=== PATIENT | male | born 1955 | race Caucasian/White ===

== ENCOUNTER 2018-05-20 13:32 | Emergency (ER) | payer OTHER ==
[2018-05-20 13:58] VITALS: TEMP 98.8
[2018-05-20 14:18] VITALS: RESP 20
--- NOTE | 2018-05-20 14:36 | ED ---
General Adult HPI - General Chief complaint: Allergic Reaction Stated complaint: allergic reaction Time Seen by Provider: 05/20/18 14:01 Source: patient, RN notes reviewed Mode of arrival: ambulatory Limitations: no limitations - History of Present Illness Initial comments: Patient 62-year-old male presents emergency room today with a chief complaint of foreign body sensation to the throat 2 days. Patient does admit that symptoms started after he was eating some aches 2 days ago. Patient states that he feels that he is having a difficult time swallowing. States he is able to keep down liquids but having a hard time with solids. Patient does not that his voice is changed over the last 2 days. Patient does admit that he was bitten by he believes a spider 3 days ago. He states he noticed a bite to his abdomen also want to eat lower leg. He states that this area seemed to be doing well he is unsure if it's related. Did try Benadryl yesterday with no relief the symptoms. Patient denies any recent fever, chills, shortness of breath, chest pain, back pain, abdominal pain, nausea or vomiting, numbness or tingling, - Related Data Allergies Allergy/AdvReac Type Severity Reaction Status Date / Time No Known Allergies Allergy Verified 05/20/18 13:58 Review of Systems ROS Statement: Those systems with pertinent positive or pertinent negative responses have been documented in the HPI. ROS Other: All systems not noted in ROS Statement are negative. Past Medical History Past Medical History: No Reported History History of Any Multi-Drug Resistant Organisms: None Reported Past Surgical History: Hernia Repair Additional Past Surgical History / Comment(s): rotator cuff repair, left bicep repair, right hip Past Psychological History: No Psychological Hx Reported Smoking Status: Light tobacco smoker Past Alcohol Use History: None Reported Past Drug Use History: None Reported General Exam - General Exam Comments Initial Comments: General: The patient is awake and alert, in no distress, and does not appear acutely ill. Eye: Extra-ocular movements are intact. No nystagmus. There is normal conjunctiva bilaterally. No signs of icterus. Ears, nose, mouth and throat: There are moist mucous membranes and no oral lesions. Uvula midline. Patient swallows without difficulty. Neck: The neck is supple, there is no tenderness or JVD. Cardiovascular: There is a regular rate and rhythm. No murmur, rub or gallop is appreciated. Respiratory: Lungs are clear to auscultation, respirations are non-labored, breath sounds are equal. No wheezes, stridor, rales, or rhonchi. Musculoskeletal: Normal ROM, no tenderness. Sensation intact. Neurological: A&O x 3. CN II-XII intact, There are no obvious motor or sensory deficits. Coordination appears grossly intact. Speech is normal. Skin: Skin is warm and dry and no rashes or lesions are noted. Psychiatric: Cooperative, appropriate mood & affect, normal judgment. Limitations: no limitations Course Vital Signs 05/20/18 05/20/18 05/20/18 13:54 14:17 16:34 Temperature 98.8 F Pulse Rate 120 H 120 H 104 H Respiratory 18 20 20 Rate Blood Pressure 125/84 138/84 145/94 O2 Sat by Pulse 98 96 Oximetry EKG Findings - EKG Comments: EKG Findings:: EKG performed at 1521: Shows sinus tachycardia 111 beats per minute. GA interval 168. QRS 86. QT/QTC 336/456. No acute ST changes. Medical Decision Making - Medical Decision Making Patient reexamined here in the emergency room show no signs of distress. Patient's labs been reviewed does show blood glucose mildly elevated. His x- rays and CT are negative for any acute abnormality to account for patient's symptoms. Patient tolerating by mouth liquids here in emergency room. Patient will be discharged home advised follow-up with GI on the next 2 days. Advised return if symptoms increase or worsen. - Lab Data Result diagrams: 05/20/18 15:21 05/20/18 15:21 Lab Results 05/20/18 05/20/18 Range/Units 15:21 15:21 WBC 7.2 (3.8-10.6) k/uL RBC 4.86 (4.30-5.90) m/uL Hgb 14.8 (13.0-17.5) gm/dL Hct 43.2 (39.0-53.0) % MCV 88.9 (80.0-100.0) fL MCH 30.4 (25.0-35.0) pg MCHC 34.2 (31.0-37.0) g/dL RDW 12.8 (11.5-15.5) % Plt Count 215 (150-450) k/uL Neutrophils % 58 % Lymphocytes % 30 % Monocytes % 7 % Eosinophils % 2 % Basophils % 1 % Neutrophils # 4.2 (1.3-7.7) k/uL Lymphocytes # 2.2 (1.0-4.8) k/uL Monocytes # 0.5 (0-1.0) k/uL Eosinophils # 0.1 (0-0.7) k/uL Basophils # 0.0 (0-0.2) k/uL Sodium 137 (137-145) mmol/L Potassium 4.1 (3.5-5.1) mmol/L Chloride 104 (98-107) mmol/L Carbon Dioxide 23 (22-30) mmol/L Anion Gap 10 mmol/L BUN 16 (9-20) mg/dL Creatinine 0.69 (0.66-1.25) mg/dL Est GFR (CKD-EPI)AfAm >90 (>60 ml/min/1.73 sqM) Est GFR (CKD-EPI)NonAf >90 (>60 ml/min/1.73 sqM) Glucose 266 H (74-99) mg/dL Calcium 10.1 (8.4-10.2) mg/dL Total Bilirubin 0.7 (0.2-1.3) mg/dL AST 43 (17-59) U/L ALT 66 (21-72) U/L Alkaline Phosphatase 56 (38-126) U/L Total Protein 7.2 (6.3-8.2) g/dL Albumin 4.2 (3.5-5.0) g/dL Disposition Clinical Impression: Difficulty in swallowing, Elevated random blood glucose level Disposition: HOME SELF-CARE Condition: Good Instructions: Dysphagia (ED) Additional Instructions: Please use medication as discussed. Please follow-up with GI in the next 2 days. Please return to emergency room if the symptoms increase or worsen or for any other concerns. Is patient prescribed a controlled substance at d/c from ED?: No Referrals: Minal Colón MD [Primary Care Provider] - 1-2 days Karma Andrade MD [STAFF PHYSICIAN] - 1-2 days Time of Disposition: 16:51
--- NOTE | 2018-05-20 14:36 | XR ---
EXAMINATION TYPE: XR chest 2V DATE OF EXAM: 05/20/2018 COMPARISON: NONE HISTORY: Shortness of breath TECHNIQUE: Frontal and lateral views of the chest are obtained. FINDINGS: Scattered senescent parenchymal changes noted. Hyperinflation compatible with COPD. No evidence for infiltrate. No evidence for atelectasis. Heart size is stable. Mediastinal structures are stable and grossly unremarkable. No evidence for hilar prominence. Degenerative changes dorsal spine. IMPRESSION: 1. No evidence for acute pulmonary disease.
--- NOTE | 2018-05-20 14:39 | XR ---
EXAMINATION TYPE: XR soft tissue neck DATE OF EXAM: 05/20/2018 COMPARISON: NONE HISTORY: Pain TECHNIQUE: 2 views of the soft tissues of the neck are submitted. FINDINGS: The airway is patent. Normal appearing epiglottis. Retropharyngeal soft tissues are withi n normal limits. Moderate degenerative change with disc space narrowing and spondylosis cervical spi ne. No evidence for radiopaque foreign body. IMPRESSION: Negative study
[2018-05-20] MEDS ORDERED: SODIUM CHLORIDE 0.9% 1,000 ML IV STA (15:05)
[2018-05-20 15:47] LABS: Basophils % (A) 1 %; Eosinophils # (A) 0.1 k/uL (0-0.7); Eosinophils % (A) 2 %; HCT 43.2 % (39.0-53.0); HGB 14.8 gm/dL (13.0-17.5); Lymphocytes # (A) 2.2 k/uL (1.0-4.8); Lymphocytes % (A) 30 %; MCH 30.4 pg (25.0-35.0); MCHC 34.2 g/dL (31.0-37.0); MCV 88.9 fL (80.0-100.0); Mean Platelet Volume 6.8; Monocytes # (A) 0.5 k/uL (0-1.0); Monocytes % (A) 7 %; Neutrophils # (A) 4.2 k/uL (1.3-7.7); Neutrophils % (A) 58 %; Platelet Count 215 k/uL (150-450); RBC 4.86 m/uL (4.30-5.90); RDW 12.8 % (11.5-15.5); WBC 7.2 k/uL (3.8-10.6)
[2018-05-20 15:50] LABS: ALT 66 U/L (21-72); AST 43 U/L (17-59); Albumin 4.2 g/dL (3.5-5.0); Alkaline Phosphatase 56 U/L (38-126); Anion Gap 10 mmol/L; Blood Urea Nitrogen 16 mg/dL (9-20); Calcium 10.1 mg/dL (8.4-10.2); Carbon Dioxide 23 mmol/L (22-30); Chloride 104 mmol/L (98-107); Glucose 266 mg/dL (74-99); Potassium 4.1 mmol/L (3.5-5.1); Sodium 137 mmol/L (137-145); Total Bilirubin 0.7 mg/dL (0.2-1.3); Total Protein 7.2 g/dL (6.3-8.2)
--- NOTE | 2018-05-20 16:22 | CT ---
EXAMINATION TYPE: CT neck chest w con DATE OF EXAM: 05/20/2018 COMPARISON: Chest x-ray of soft tissue neck x-ray earlier today HISTORY: pain not further specified. CT DLP: 1266 mGycm. Automated Exposure Control for Dose Reduction was Utilized. TECHNIQUE: CT scan of the neck and thorax are performed following with IV Contrast, patient injected with 100 mL of Isovue 300. FINDINGS: NECK: Airway: No gross abnormality seen. Parotid/submandibular glands: No gross abnormality seen. Carotid/Vascular Structures: No significant focal plaque at carotid bulb level is present bilaterally . Osseous Structures: Spine is straightened on sagittal images. There is mild to moderate multilevel di sc space narrowing most prominent C5-C6 level. Mild multilevel anterior spurring is seen. There are m ultilevel uncovertebral facet degenerative changes seen bilaterally. Other: Prominent but subcentimeter lymph nodes are seen throughout the neck bilaterally. No suspiciou s greater than 1 cm neck adenopathy is seen. THORAX: LUNGS: The lungs are grossly clear, there is no concerning parenchymal mass or nodule identified. T here is no pleural effusion or pneumothorax seen. The tracheobronchial tree is patent. MEDIASTINUM: There are no greater than 1 cm hilar or mediastinal lymph nodes. Scattered subcentimeter lymph nodes are present. No cardiomegaly or pericardial effusion is seen. Coronary artery calcific ation is present which is noted marker for coronary artery disease. OTHER: Visualized liver is hypodense consistent with fatty infiltration. There is nonspecific 1.9 cm hyperdense lesion posterior right hepatic dome axial image 49. Follow-up nonemergent liver protocol c ontrast-enhanced MRI is advised to further evaluate and characterize. There is moderate to severe mul tilevel anterior and lateral spurring in the thoracic spine. Small amount of bilateral gynecomastia l eft greater than right is noted. IMPRESSION: No acute findings evident.
[2018-05-20 16:35] VITALS: BP 145/94; PULSE 104
== END 2018-05-20 16:55 | disposition home or self-care (01) ==
LOC: EC 13:32
DX: R13.10 Dysphagia, unspecified (principal); R73.9 Hyperglycemia, unspecified; T63.301A Toxic effect of unspecified spider venom, accidental (unintentional), initial encounter; R09.89 Other specified symptoms and signs involving the circulatory and respiratory systems; F17.200 Nicotine dependence, unspecified, uncomplicated
CPT/HCPCS: 36415; 93005; 80053; 85025; 70360; 71046; 70491; 71260; 99284; 96360; Q9967

== ENCOUNTER → 2019-04-19 | Outpatient (CLI) | payer OTHER ==
[2019-04-19 10:52] LABS: African American GFR (CKD) >90 (>60 ml/min/1.73 sqM); Blood Urea Nitrogen 22 mg/dL (9-20); Non-African American GFR(CKD) >90 (>60 ml/min/1.73 sqM)
--- NOTE | 2019-04-19 12:03 | CT ---
EXAMINATION TYPE: CT abdomen w con DATE OF EXAM: 04/19/2019 COMPARISON: None HISTORY: Right sided pain CT DLP: 2137.5 mGycm CONTRAST: CT scan of the abdomen is performed with Oral Contrast and with IV Contrast, patient injected with 1 00 mL of Isovue 300. FINDINGS: LUNG BASES-: No visible nodule. No infiltrate. LIVER/GB: No calcified gallstones. Ill-defined hypoattenuating lesion near the dome of the liver po sterior segment right hepatic lobe measures 1.7 cm. The lesion is poorly visualized on delayed images and may reflect hemangioma. Consider ultrasound correlation. Additional hyperdense bilobed lesion po sterior segment right hepatic lobe image 24 which completely fills in on the delayed images and is fe lt to reflect hemangioma. Biliary tree is of normal caliber. PANCREAS: No inflammation. No distinct mass. SPLEEN: No splenic enlargement. No lesion seen. ADRENALS: No nodule. Adrenal glandular thickening noted left greater than right may reflect hyperpla adarsh. KIDNEYS/BLADDER: No hydronephrosis. No nephrolithiasis. No distinct renal mass. Urinary bladder g rossly unremarkable. BOWEL: Nonvisualization of the pelvic loops. Normal bowel caliber. No inflammation. Sigmoid divertic ulosis without diverticulitis. LYMPH NODES: No greater than 1cm abdominal or pelvic lymph nodes are appreciated. AORTA: No significant abnormality. OSSEOUS STRUCTURES: Severe degenerative change lumbar spine with vacuum disc noted. OTHER: No significant additional abnormality is seen. IMPRESSION: 1. Ill-defined hypoattenuating lesion near the dome of the liver posterior segment right hepatic lobe measures 1.7 cm. The lesion is poorly visualized on delayed images and may reflect hemangioma. Consi wen ultrasound correlation. 2. Probable additional bilobed hemangioma. 3. Hyperplasia of the adrenal glands.
== END | disposition home or self-care (01) ==
LOC: RADCTMAIN 09:32
PROVIDERS: ATTEND Family Medicine
DX: K76.9 Liver disease, unspecified (principal); E27.8 Other specified disorders of adrenal gland
CPT/HCPCS: 82565; 84520; 74160; 36415; Q9967

== ENCOUNTER → 2019-05-17 | Outpatient (CLI) | payer OTHER ==
--- NOTE | 2019-05-17 11:49 | US ---
EXAMINATION TYPE: US abdomen complete DATE OF EXAM: 05/17/2019 COMPARISON: CT April 19, 2019 CLINICAL HISTORY: K76.9 Liver lesions. Liver lesion seen on recent CT EXAM MEASUREMENTS: Liver Length: 18.9 cm Gallbladder Wall: 0.3 cm CBD: 0.4 cm Spleen: 11.5 cm Right Kidney: 11.9 x 5.4 x 5.4 cm Left Kidney: 13.0 x 5.6 x 7.0 cm Difficult and limited study due to patient body habitus Pancreas: visualized portions wnl, limited by overlying midline bowel gas Liver: enlarged, heterogeneous with 1.7 x 1.7 x 1.2cm hypoechoic area right lobe and 1.5 x 1.2 x 1.2 cm hypoechoic area adjacent to gallbladder Gallbladder: wnl Evidence for sonographic Russell's sign: no CBD: visualized portions wnl, limited by overlying bowel gas Spleen: wnl Right Kidney: lobulated contour Left Kidney: lobulated contour Upper IVC: wnl Abd Aorta: ectatic proximal portion measuring 2.8cm in AP, mid and distal portion obscured by overly ing midline bowel gas The visualized liver is heterogeneously hyperechoic. Evaluation for focal masses suboptimal due to th e heterogeneity. No intrahepatic ductal dilatation is seen. There is irregular 1.7 cm hypoechoic lesi on posterior right hepatic lobe near superior aspect right kidney corresponds to hyperdense focus on CT. The intrahepatic portion of the IVC and visualized proximal abdominal aorta are within normal marquez its. There is no evidence of cholelithiasis. Common bile duct is unremarkable. The visualized port ions of the pancreas are homogenous. The spleen is unremarkable. Kidneys are symmetric and free of hydronephrosis. No renal lesions are seen. IMPRESSION: Diffuse fatty infiltration of liver redemonstrated which makes evaluation suboptimal. Cor responding to hyperdense lesion on CT there is more isodense on delayed phase images is hypoechoic le jj making hemangioma less likely. There may be secondary to additional hyperdense lesion posterior right hepatic dome near 1 cm in size coronal image 79. Further investigation with multiphasic liver p rotocol contrast enhanced MRI is advised to better evaluate both levels.
== END | disposition home or self-care (01) ==
LOC: RADUSMAIN 08:38
PROVIDERS: ATTEND Family Medicine
DX: K76.9 Liver disease, unspecified (principal); K76.0 Fatty (change of) liver, not elsewhere classified
CPT/HCPCS: 76700

== ENCOUNTER → 2019-05-29 | Outpatient (CLI) | payer OTHER | END | disposition home or self-care (01) | LOC: RADMRIMAIN 21:46 | PROVIDERS: ATTEND Family Medicine | DX: Z53.9 Procedure and treatment not carried out, unspecified reason (principal) ==

== ENCOUNTER → 2021-01-28 | Outpatient (CLI) | payer OTHER | END | disposition home or self-care (01) | LOC: CPPFTMAIN 13:30 | PROVIDERS: ATTEND Family Medicine | DX: R06.02 Shortness of breath (principal); F17.200 Nicotine dependence, unspecified, uncomplicated | CPT/HCPCS: 94060; 94726; 94729 ==

== ENCOUNTER → 2021-07-14 | Outpatient (CLI) | payer OTHER ==
[2021-07-14 18:52] LABS: African American GFR (CKD) >90 (>60 ml/min/1.73 sqM); Blood Urea Nitrogen 22 mg/dL (9-20); Non-African American GFR(CKD) >90 (>60 ml/min/1.73 sqM)
--- NOTE | 2021-07-14 20:01 | CT ---
EXAMINATION TYPE: CT abdomen pelvis w con DATE OF EXAM: 07/14/2021 COMPARISON: 04/19/2019 HISTORY: abd pain CT DLP: 3604.9 mGycm Automated exposure control for dose reduction was used. CONTRAST: CT scan of the abdomen pelvis is performed with IV Contrast, patient injected with 100 mL of Isovue 3 00. FINDINGS- LUNG BASES- No significant abnormality is appreciated. LIVER/GB-liver is low in attenuation. Measures 27 cm correlate for hepatomegaly and hepatic steatosis . Previously noted hepatic dome lesion not seen with certainty on today's exam. Subcentimeter nodular enhancement involving the posterior segment of the right lobe of the liver is reduced in size from p rior exam may represent an area of fatty sparing or possibly a tiny flash hemangioma smaller in size relative to the previous exam.. PANCREAS- No gross abnormality is seen. SPLEEN- No gross abnormality is seen. ADRENALS-8mm nodule at the left adrenal gland nonspecific but stable from prior exam most likely in t he basis of an incidental adrenal adenoma.. KIDNEYS/BLADDER- no hydronephrosis nephrolithiasis or renal mass. BOWEL-bowel gas pattern nonspecific with no obstruction. Changes of sigmoid diverticulosis.. Normal appendix. LYMPH NODES- No greater than 1cm abdominal or pelvic lymph nodes areappreciated. OSSEOUS STRUCTURES-multilevel hypertrophic and degenerative disc disease.. OTHER- atherosclerotic change of aorta. No evidence of aneurysm. Ectasia of the common iliac arterie s. IMPRESSION- 1. Diverticulosis with no CT evidence of diverticulitis. 2. Hepatomegaly correlate for hepatocellular disease or hepatic steatosis. Previous hepatic dome lesi on not seen on today's exam. Hyperdense lesion noted on the prior exam appears smaller in size may re present an area of focal fatty sparing or tiny flash hemangioma. 3. Stable subcentimeter left adrenal nodule likely related to incidental adenoma.
== END | disposition home or self-care (01) ==
LOC: RADCTMAIN 17:26
PROVIDERS: ATTEND Family Medicine
DX: R16.0 Hepatomegaly, not elsewhere classified (principal); K57.30 Diverticulosis of large intestine without perforation or abscess without bleeding; E27.8 Other specified disorders of adrenal gland
CPT/HCPCS: 82565; 84520; 74177; 36415; Q9967

== ENCOUNTER → 2023-02-16 | Outpatient (CLI) | payer OTHER ==
[2023-02-17 12:25] LABS: ALT 66 U/L (10-49); AST 31 U/L (14-35); Albumin 4.7 d/dL (3.8-4.9); Albumin/Globulin Ratio 2.04 Ratio (1.60-3.17); Alkaline Phosphatase 42 U/L (41-126); BUN/Creat Ratio 22.75 Ratio (12.00-20.00); Blood Urea Nitrogen 18.2 mg/dL (9.0-27.0); Calcium 10.2 mg/dL (8.7-10.3); Carbon Dioxide 23.5 mmol/L (21.6-31.8); Chloride 102 mmol/L (96-109); Chol/HDL Ratio 5.12 Ratio; Globulin 2.3 d/dL (1.6-3.3); Glucose 137 mg/dL (70-110); LDL Cholesterol,Calculated 135.4 mg/dL (0.0-131.0); Potassium 4.6 mmol/L (3.5-5.5); Sodium 141 mmol/L (135-145); Total Bilirubin 0.4 mg/dL (0.3-1.2)
== END | disposition home or self-care (01) ==
LOC: LABWHC1 12:34
PROVIDERS: ATTEND Internal Medicine Interventional Cardiology
DX: E78.2 Mixed hyperlipidemia (principal)
CPT/HCPCS: 36415; 80053; 80061

== ENCOUNTER 2023-03-23 07:08 | Day surgery (SDC) | payer MEDICARE, OTHER ==
[2023-03-19 10:01] VITALS: BMI 44.6
[~2023-03-23 07:08] MED LIST: ALPRAZolam 0.25 MG TAB PO PRN; ALPRAZolam 0.5 MG TAB PO PRN; ASPIRIN 325 MG TAB PO STA; ATORVASTATIN 80 MG TAB PO STA; HEPARIN SODIUM,PORCINE 10,000 UNIT in SODIUM CHLORIDE 0.9% 1,000 ML IRRIGATION PRN; HEPARIN SODIUM,PORCINE 2,500 UNIT in SODIUM CHLORIDE 0.9% 250 ML IRRIGATION PRN; NITROGLYCERIN SL TABS 0.4 MG TAB SUBLINGUAL PRN; SODIUM CHLORIDE 0.9% 1,000 ML in EMPTY BAG 1 BAG IV SCH
[2023-03-23] MEDS ORDERED: SODIUM CHLORIDE 0.9% 1,000 ML IV ONE (07:27)
[2023-03-23 07:43] LABS: Glucose,Whole Blood 134 mg/dL (70-110)
[2023-03-23 07:46] VITALS: RESP 16; TEMP 98.7
[2023-03-23 07:58] LABS: Basophils % (A) 1 %; Eosinophils # (A) 0.1 k/uL (0-0.7); Eosinophils % (A) 2 %; HCT 43.1 % (39.0-53.0); HGB 15.4 gm/dL (13.0-17.5); Lymphocytes # (A) 1.8 k/uL (1.0-4.8); Lymphocytes % (A) 25 %; MCH 31.9 pg (25.0-35.0); MCHC 35.7 g/dL (31.0-37.0); MCV 89.6 fL (80.0-100.0); Mean Platelet Volume 7.6; Monocytes # (A) 0.5 k/uL (0-1.0); Monocytes % (A) 8 %; Neutrophils # (A) 4.5 k/uL (1.3-7.7); Neutrophils % (A) 62 %; Platelet Count 213 k/uL (150-450); RBC 4.81 m/uL (4.30-5.90); RDW 13.4 % (11.5-15.5); WBC 7.2 k/uL (3.8-10.6)
[2023-03-23 08:05] LABS: African American GFR (CKD) >90 (>60 ml/min/1.73 sqM); Anion Gap 11 mmol/L; Blood Urea Nitrogen 17 mg/dL (9-20); Calcium 9.9 mg/dL (8.4-10.2); Carbon Dioxide 26 mmol/L (22-30); Chloride 104 mmol/L (98-107); Glucose 137 mg/dL (74-99); Non-African American GFR(CKD) >90 (>60 ml/min/1.73 sqM); Potassium 4.6 mmol/L (3.5-5.1); Sodium 141 mmol/L (137-145)
[2023-03-23] MEDS ORDERED: VERAPAMIL 2.5 MG/ML 2 ML AMP ONE (09:10)
[2023-03-23] MEDS ORDERED: fentaNYL (PF) 50 MCG/ML 2 ML AMP ONE (09:17)
[2023-03-23] MEDS ORDERED: HEPARIN SODIUM 1,000 UN/ML (10ML VL) ONE (09:17)
[2023-03-23] MEDS ORDERED: fentaNYL (PF) 50 MCG/ML 2 ML AMP IVP ONE (09:37)
[2023-03-23] MEDS ORDERED: LIDOCAINE 1% INJ 10MG/ML (5 ML VIAL-PF) SQ ONE (09:38)
[2023-03-23] MEDS ORDERED: VERAPAMIL SYRINGE (5 MG/10 ML) INTRAARTER ONE (09:40)
[2023-03-23] MEDS ORDERED: HEPARIN SODIUM 1,000 UN/ML (10ML VL) IV ONE (09:44)
[2023-03-23] MEDS ORDERED: IOPAMIDOL-370 100ML BTL INJ ONE (09:47)
[2023-03-23] MEDS ORDERED: RX INFO: IV CONTRAST WAS GIVEN 1 EACH MISC MISCELLANE PRN (10:01)
--- NOTE | 2023-03-23 10:06 | P.CARDCATH ---
Date of Procedure: 03/23/23 Description of Procedure: Cardiac Catheterization: The patient is a 67-year-old male with a history of hypertension, hyperlipidemia and diabetes mellitus who has been complaining of chest discomfort, had an abnormal MPI. Recommendations were made regarding cardiac catheterization, the risks and the complications were discussed with the patient who is in full understanding and agreement. 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 Using Xylocaine Anesthesia and Seldinger technique, a 6-Afghan sheath was introduced in the right radial artery . Subsequently, selective coronary angiography was performed using a 5-Afghan 3.5 bend Robbin catheter. Multiple views of the coronary artery including hemiaxial views were obtained. The right Robbin catheter was used to cross the aortic valve and LVEDP was calculated. Following that, catheter and sheath were removed. Hemostasis was obtained with deployment of TR band . There was no immediate complication. Patient was returned to room in stable condition. Of note, the patient received a total of 5000 units of intravenous heparin as well as intra-arterial verapamil. Findings: Left main: This is a large-size vessel, bifurcating into LAD and left circumflex, left main has no high-grade stenosis LAD: This is a large-size vessel, reaching to the apex, giving rise to a large diagonal branch, the LAD has no obstructive disease. Left circumflex: This is a large nondominant vessel, giving rise to a large obtuse marginal branch it has no evidence of obstructive disease RCA: This is a large dominant vessel, bifurcating into PDA and PLV, the right PDA reaches to the inferoapical wall. The right coronary artery and its branches have no obstructive disease Left Ventriculogram: Not performed Hemodynamics: There was no gradient across the aortic valve , LVEDP was is 20-22 mmHg Conclusion: 1. Normal coronary arteries 2. Right dominance 3. Mildly elevated LVEDP Recommendations: The patient will continue on his present therapy with aggressive coronary risks modifications. The findings and the recommendations were discussed with the patient and the family and they were in full understanding and agreement. Duration of sedation is 11 minutes.
[2023-03-23] MEDS ORDERED: SODIUM CHLORIDE 0.9% 1,000 ML IV SCH (10:15)
[2023-03-23 14:57] VITALS: BP 137/84; PULSE 92
[2023-03-24] MEDS ORDERED: PIOGLITAZONE 15 MG TAB PO SCH (07:00)
[2023-03-24] MEDS ORDERED: LOSARTAN 50 MG TAB PO SCH (07:00)
[2023-03-24] MEDS ORDERED: ATORVASTATIN 20 MG TAB PO SCH (09:00)
[2023-03-25] MEDS ORDERED: NON FORMULARY DRUG (Dulaglutide [Trulicity] 1.5 MG/0.5 ML Each) SQ SCH (10:02)
== END 2023-03-23 13:52 | disposition home or self-care (01) ==
LOC: CATHCVL 07:08
PROVIDERS: ATTEND Internal Medicine Interventional Cardiology
DX: R07.89 Other chest pain (principal); R94.39 Abnormal result of other cardiovascular function study; I10 Essential (primary) hypertension; E78.2 Mixed hyperlipidemia; Z87.891 Personal history of nicotine dependence; E11.9 Type 2 diabetes mellitus without complications; E66.9 Obesity, unspecified; Z68.41 Body mass index [BMI] 40.0-44.9, adult; G43.909 Migraine, unspecified, not intractable, without status migrainosus; Z79.85 Long-term (current) use of injectable non-insulin antidiabetic drugs; Z79.84 Long term (current) use of oral hypoglycemic drugs; Z79.82 Long term (current) use of aspirin; Z79.899 Other long term (current) drug therapy; Z88.8 Allergy status to other drugs, medicaments and biological substances
CPT/HCPCS: 93458; 80048; 85025; C1769; C1894; J2001; J3010; J1644; Q9967

== ENCOUNTER → 2023-11-17 | Outpatient (CLI) | payer MEDICARE, OTHER ==
[2023-11-17 17:22] LABS: BUN/Creat Ratio 18.89 Ratio (12.00-20.00); Carbon Dioxide 22.6 mmol/L (21.6-31.8); Chloride 104 mmol/L (96-109); Chol/HDL Ratio 4.69 Ratio; Glucose 197 mg/dL (70-110); LDL Cholesterol,Calculated 127.1 mg/dL (0.0-131.0); Potassium 4.2 mmol/L (3.5-5.5); Sodium 140 mmol/L (135-145)
[2023-11-17 17:23] LABS: ALT 93 U/L (10-49); AST 39 U/L (14-35); Albumin 4.9 g/dL (3.8-4.9); Albumin/Globulin Ratio 1.96 Ratio (1.60-3.17); Alkaline Phosphatase 50 U/L (41-126); Calcium 10.1 mg/dL (8.7-10.3); Globulin 2.5 g/dL (1.6-3.3); Total Bilirubin 0.6 mg/dL (0.3-1.2); Total Protein 7.4 g/dL (6.2-8.2)
== END | disposition home or self-care (01) ==
LOC: LABWHC1 11:20
PROVIDERS: ATTEND Family Medicine
DX: E11.65 Type 2 diabetes mellitus with hyperglycemia (principal)
CPT/HCPCS: 36415; 80053; 80061; 82043; 82570; 83036

== ENCOUNTER → 2024-12-25 | Outpatient (CLI) | payer MEDICARE, OTHER | END | disposition home or self-care (01) | LOC: LABWHC1 09:56 | PROVIDERS: ATTEND Internal Medicine | DX: E11.65 Type 2 diabetes mellitus with hyperglycemia (principal) ==

== ENCOUNTER → 2024-12-26 | Outpatient (CLI) | payer MEDICARE, OTHER ==
[2024-12-26 10:30] LABS: LDL Cholesterol,Calculated 116.1 mg/dL (0.0-131.0)
== END | disposition home or self-care (01) ==
LOC: LABWHC1 07:26
PROVIDERS: ATTEND Internal Medicine
DX: E11.65 Type 2 diabetes mellitus with hyperglycemia (principal)
CPT/HCPCS: 36415; 80061; 83036

== ENCOUNTER 2025-01-05 09:19 | Emergency (ER) | payer MEDICARE, OTHER ==
[2025-01-05 09:31] VITALS: TEMP 99.1
[2025-01-05 11:35] LABS: Basophils # (A) 0.04 10*3/uL (0.00-0.10); Basophils % (A) 0.7 %; Eosinophils # (A) 0.12 10*3/uL (0.04-0.35); HCT 39.7 % (39.6-50.0); HGB 13.8 g/dL (13.0-17.0); Lymphocytes # (A) 1.83 10*3/uL (0.90-5.00); Lymphocytes % (A) 30.9 %; MCH 31.2 pg (27.0-32.0); MCHC 34.8 g/dL (32.0-37.0); MCV 89.6 fL (80.0-97.0); Mean Platelet Volume 9.9 fL (9.5-12.2); Monocytes # (A) 0.59 10*3/uL (0.20-1.00); Neutrophils # (A) 3.31 10*3/uL (1.80-7.70); Neutrophils % (A) 55.9 %; Platelet Count 218 10*3/uL (140-440); RBC 4.43 10*6/uL (4.40-5.60); RDW 13.2 % (11.5-14.5); WBC 5.92 10*3/uL (4.50-10.00)
[2025-01-05 11:44] LABS: VBG PH 7.44 (7.31-7.41)
[2025-01-05 11:48] LABS: Appearance,Urine Clear (Clear); Bilirubin,Urine Negative (Negative); Blood,Urine Negative (Negative); Color,Urine Colorless; Glucose,Urine (UA) Negative (Negative); Ketones,Urine Negative (Negative); Leukocyte Esterase,Urine Negative (Negative); Nitrite,Urine Negative (Negative); Protein,Urine Negative (Negative); Urobilinogen,Urine <2.0 mg/dL (<2.0)
--- NOTE | 2025-01-05 12:05 | XR ---
EXAMINATION TYPE: XR chest 2V DATE OF EXAM: 01/05/2025 CLINICAL INDICATION: Male, 69 years old with history of difficulty breathing, TECHNIQUE: Frontal and lateral views of the chest are obtained. COMPARISON: Chest CT 2018 FINDINGS: There is no focal air space opacity, pleural effusion, or pneumothorax seen. Cardiomegaly is present. The osseous structures are intact. IMPRESSION: Cardiomegaly without acute pulmonary process. [facility], , 01/05/2025 12:02 PM
[2025-01-05 12:57] LABS: ALT 42 U/L (4-49); AST 29 U/L (17-59); African American GFR (CKD) >90 (>60 ml/min/1.73 sqM); Albumin 4.2 g/dL (3.5-5.0); Alkaline Phosphatase 42 U/L (38-126); Anion Gap 8 mmol/L; Blood Urea Nitrogen 18 mg/dL (9-20); Calcium 9.9 mg/dL (8.4-10.2); Carbon Dioxide 24 mmol/L (22-30); Chloride 105 mmol/L (98-107); Glucose 157 mg/dL (74-99); Magnesium 1.6 mg/dL (1.6-2.3); Non-African American GFR(CKD) >90 (>60 ml/min/1.73 sqM); Potassium 3.9 mmol/L (3.5-5.1); Sodium 137 mmol/L (137-145); Total Bilirubin 0.8 mg/dL (0.2-1.3); Total Protein 6.8 g/dL (6.3-8.2)
[2025-01-05 13:05] LABS: NT-Pro-B-Type Natriuretic Pept <20 pg/mL
[2025-01-05 13:15] LABS: Influenza A Not Detected (Not Detectd); Influenza B Not Detected (Not Detectd); RSV Not Detected (Not Detectd)
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
[2025-01-05 13:33] VITALS: BP 131/82; PULSE 101; RESP 18
[2025-01-05] MEDS: IPRATROPIUM-ALBUTEROL 3 ML NEB INHALATION STA (13:37)
== END 2025-01-05 13:44 | disposition home or self-care (01) ==
LOC: EC 09:19
DX: R06.00 Dyspnea, unspecified (principal); J44.9 Chronic obstructive pulmonary disease, unspecified; Z87.891 Personal history of nicotine dependence; Z88.0 Allergy status to penicillin; Z88.1 Allergy status to other antibiotic agents
CPT/HCPCS: 36415; 71046; 80053; 81003; 82009; 82803; 83735; 83880; 85025; 87636; 93005; 99285